=== PATIENT | female | born 1995 | race American Indian/Alaskan Native ===

== ENCOUNTER 2022-06-04 23:03 | Emergency (ER) | payer SELFPAY ==
[2022-06-04 23:13] VITALS: BP 104/60; PULSE 69
[2022-06-04] MEDS ORDERED: Sodium Chloride 0.9% 1,000 ML IV ONE (23:20)
[2022-06-04] MEDS ORDERED: Ondansetron 4 MG/2 ML SDV IVPUSH ONE (23:20)
[2022-06-04] MEDS ORDERED: Naloxone 2 MG/2 ML Syringe IVPUSH ONE (23:21)
[2022-06-04 23:58] LABS: ANION GAP 9.2 mEq/L (7-13); CHLORIDE,CL 109 mmol/L (98-107); SODIUM,NA 143 mmol/L (136-145)
[2022-06-05 00:09] LABS: ESTIMATED GFR 131 mL/min (>=60)
[2022-06-05] MEDS ORDERED: Lactated Ringers 1,000 ML IV ONE (01:14)
== END 2022-06-05 03:42 | disposition home or self-care (01) ==
LOC: DL.ED 23:03
DX: F10.920 Alcohol use, unspecified with intoxication, uncomplicated (principal); E87.6 Hypokalemia; Z88.8 Allergy status to other drugs, medicaments and biological substances; Y90.7 Blood alcohol level of 200-239 mg/100 ml
CPT/HCPCS: 36415; 80053; 80307; 81003; 83735; 84703; 85025; 96361; 96374; 96375; 99285; J2310; J2405; J7030; J7120